=== PATIENT | female | born 1965 | race Two or more races ===

== ENCOUNTER 2022-08-03 15:43 | Emergency (ER) | payer OTHER ==
[~2022-08-03] VITALS: Ht 162.6 cm; Wt 108.9 kg
--- NOTE | 2022-08-03 15:55 | NUR ---
RECEIVED PT 57 YRS FEMALE CAME BY PRAMIC FROM HOME C/O BACK PAIN FOR 3 WEEK HX TA BACK PAIN
--- NOTE | 2022-08-03 16:40 | NUR ---
SEEN BY PROVIDER
[2022-08-03] MEDS ORDERED: LORAZEPAM 1 MG TABLET ONE (17:26)
[2022-08-03] MEDS ORDERED: KETOROLAC TROMETHAMINE INJ 30 MG/ML VIAL ONE (17:26)
[2022-08-03] MEDS ORDERED: predniSONE 20 MG TABLET ONE (17:26)
[2022-08-03] MEDS ORDERED: CYCLOBENZAPRINE 10 MG TABLET ONE (17:26)
[2022-08-03] MEDS ORDERED: LORAZEPAM 1 MG TABLET PO ONE (17:30)
[2022-08-03] MEDS ORDERED: KETOROLAC TROMETHAMINE INJ 60 MG/2 ML VIAL IM ONE (17:30)
[2022-08-03] MEDS ORDERED: predniSONE 10 MG TABLET PO ONE (17:30)
[2022-08-03] MEDS ORDERED: CYCLOBENZAPRINE 10 MG TABLET PO ONE (17:30)
--- NOTE | 2022-08-03 17:35 | NUR ---
Resting and ASLEEPY NO PAIN
[2022-08-03] MEDS ORDERED: CYCL10TA9 PO (18:38)
[2022-08-03] MEDS ORDERED: IBUP-1955 PO (18:38)
[2022-08-03] MEDS ORDERED: PRED50TA PO (18:38)
--- NOTE | 2022-08-03 18:56 | NUR ---
Patient discharged to home in stable condition. Written and verbal after care instructions given. Patient verbalizes understanding of instruction.
[2022-08-03 19:08] VITALS: BP 149/93
== END 2022-08-03 19:09 | disposition home or self-care (01) ==
LOC: ER 15:51
DX: M48.36 Traumatic spondylopathy, lumbar region (principal); M54.42 Lumbago with sciatica, left side; M54.41 Lumbago with sciatica, right side; I10 Essential (primary) hypertension; E11.9 Type 2 diabetes mellitus without complications; Z79.899 Other long term (current) drug therapy
CPT/HCPCS: 99284; 96372; 72100; J7512 ×2; J1885